=== PATIENT | male | born 1980 | race Caucasian/White ===

== ENCOUNTER 2018-06-13 14:33 | Emergency (ER) | payer BC ==
[2018-06-13 16:03] LABS: Absolute Neutrophil 7.4 K/uL (1.8-8.0); Basophils % 0.1 % (0-1.3); Hematocrit 48.9 % (39.6-49.0); Lymphocytes % 10.4 % (15.3-44.8); MPV 8.6 fL (7.6-11.3); Monocytes % 10.3 % (3.3-12.3); RBC Red Blood Cell Count 5.76 M/uL (4.33-5.43)
[2018-06-13] MEDS ORDERED: NA CHLORIDE 0.9% 1,000 ML ONE (16:05)
[2018-06-13] MEDS ORDERED: ONDANSETRON 4 MG/2 ML VIAL ONE (16:05)
--- NOTE | 2018-06-13 16:06 | RAD REPORT ---
EXAM DESCRIPTION: RAD - Chest Pa And Lat (2 Views) - 06/13/2018 3:57 pm CLINICAL HISTORY: Cough;Congestion Chest pain. COMPARISON: Chest Pa And Lat (2 Views) dated 03/21/2017; ABDOMEN ACUTE SERIES dated 08/04/2012 FINDINGS: The lungs are clear. The heart is normal in size. No displaced fractures. IMPRESSION: No acute or concerning finding suspected.
[2018-06-13 16:21] LABS: BUN Blood Urea Nitrogen 5 mg/dL (7-18); Bicarbonate 31 mmol/L (21-32); Glucose Level 108 mg/dL (74-106); Potassium 3.4 mmol/L (3.5-5.1); Sodium Level 137 mmol/L (136-145)
[2018-06-13] MEDS ORDERED: PROMETHAZINE 25 MG/ML VIAL ONE (16:45)
--- NOTE | 2018-06-13 17:24 | EDPHYS ---
Physician Documentation [facility] Name: Varinder Michael Age: 37 yrs Sex: Male : 1980 Arrival Date: 06/13/2018 Time: 14:36 Bed 23 Private MD: Elías Harrington H ED Physician Alex Bush HPI: 06/13 16:27 This 37 yrs old Male presents to ER via Ambulatory with complaints of kb Shortness Of Breath, Vomiting. 16:27 The patient or guardian reports cough, that is intermittent, described as moderate, kb with no sputum, difficulty breathing, flu symptoms, arthralgias, low-grade fever, myalgias, no appetite. Onset: The symptoms/episode began/occurred 4 day(s) ago. Severity of symptoms: At their worst the symptoms were moderate, in the emergency department the symptoms are unchanged. Modifying factors: The symptoms are alleviated by nothing, the symptoms are aggravated by nothing. Associated signs and symptoms: Pertinent positives: chest pain, with cough, with movement, with breathing, fever, nausea, rhinorrhea, sore throat, vomiting. The patient has not experienced similar symptoms in the past. The patient has been recently seen at an urgent care, yesterday, for similar complaints, labs were performed. Pt states he started with chills, cough, congestion 4 days ago. States the symptoms progressed so he went to yesterday and was positive for Flu A. States he hasn't been able to hold anything down and the medications aren't helping. . Pt has ProAir, zofran ODT, tamiflu and tessalon pearles that were prescribed yesterday. Historical: - Allergies: 14:52 No Known Allergies; hj - Home Meds: 14:52 Nexium 40 mg Oral cpDR 1 cap once daily [Active]; Proventil Inhl [Active]; hj - PMHx: 14:52 Asthma; GERD; hj - PSHx: 14:52 Hand- Right; hj - Immunization history:: Adult Immunizations up to date. - Social history:: Smoking status: Patient/guardian denies using tobacco, Patient/guardian denies using alcohol. - Ebola Screening: : Patient negative for fever greater than or equal to 101.5 degrees Fahrenheit, and additional compatible Ebola Virus Disease symptoms Patient denies exposure to infectious person Patient denies travel to an Ebola-affected area in the 21 days before illness onset. ROS: 16:26 Eyes: Negative for injury, pain, redness, and discharge, ENT: Negative for injury, kb pain, and discharge, Neck: Negative for injury, pain, and swelling, Back: Negative for injury and pain, MS/Extremity: Negative for injury and deformity, Skin: Negative for injury, rash, and discoloration, Neuro: Negative for headache, weakness, numbness, tingling, and seizure. 16:26 Constitutional: Positive for body aches, chills, fatigue, fever, malaise, poor PO intake, Negative for weight loss. 16:26 Respiratory: Positive for cough, Negative for dyspnea on exertion, hemoptysis, orthopnea, pleurisy, shortness of breath, sputum production, wheezing. 16:26 Abdomen/GI: Positive for nausea and vomiting, Negative for abdominal pain, diarrhea, constipation, abdominal cramps, abdominal distension, anorexia. Exam: 16:26 Constitutional: This is a well developed, well nourished patient who is awake, alert, kb and in no acute distress. Head/Face: Normocephalic, atraumatic. ENT: Nares patent. No nasal discharge, no septal abnormalities noted. Tympanic membranes are normal and external auditory canals are clear. Oropharynx with no redness, swelling, or masses, exudates, or evidence of obstruction, uvula midline. Mucous membranes moist. Neck: Trachea midline, no thyromegaly or masses palpated, and no cervical lymphadenopathy. Supple, full range of motion without nuchal rigidity, or vertebral point tenderness. No Meningismus. Chest/axilla: Normal chest wall appearance and motion. Nontender with no deformity. No lesions are appreciated. Cardiovascular: Regular rate and rhythm with a normal S1 and S2. No gallops, murmurs, or rubs. Normal PMI, no JVD. No pulse deficits. Respiratory: Lungs have equal breath sounds bilaterally, clear to auscultation and percussion. No rales, rhonchi or wheezes noted. No increased work of breathing, no retractions or nasal flaring. Abdomen/GI: Soft, non-tender, with normal bowel sounds. No distension or tympany. No guarding or rebound. No evidence of tenderness throughout. Skin: Warm, dry with normal turgor. Normal color with no rashes, no lesions, and no evidence of cellulitis. MS/ Extremity: Pulses equal, no cyanosis. Neurovascular intact. Full, normal range of motion. Neuro: Awake and alert, GCS 15, oriented to person, place, time, and situation. Cranial nerves II-XII grossly intact. Motor strength 5/5 in all extremities. Sensory grossly intact. Cerebellar exam normal. Normal gait. Vital Signs: 14:53 BP 116 / 83; Pulse 102; Resp 20; Temp 98.8(TE); Pulse Ox 99% on R/A; Weight 77.11 kg; hj Height 5 ft. 4 in. (162.56 cm); Pain 8/10; 16:03 BP 118 / 86; Pulse 86; Resp 18; Pulse Ox 100% on R/A; Pain 0/10; mg2 17:54 BP 120 / 63; Pulse 80; Resp 18; Temp 99.4(O); Pulse Ox 100% on R/A; Pain 0/10; mg2 14:53 Body Mass Index 29.18 (77.11 kg, 162.56 cm) MDM: 15:07 Patient medically screened. kb 16:24 Data reviewed: vital signs, nurses notes. Data interpreted: Pulse oximetry: on room air kb is 100 %. Interpretation: normal. Counseling: I had a detailed discussion with the patient and/or guardian regarding: the historical points, exam findings, and any diagnostic results supporting the discharge/admit diagnosis, lab results, radiology results, the need for outpatient follow up, a family practitioner, to return to the emergency department if symptoms worsen or persist or if there are any questions or concerns that arise at home. 06/13 15:39 Order name: CBC with Diff; Complete Time: 16:09 kb 06/13 15:39 Order name: Basic Metabolic Panel; Complete Time: 16:23 kb 06/13 15:39 Order name: Chest Pa And Lat (2 Views) XRAY; Complete Time: 16:09 kb 06/13 16:09 Order name: PO challenge; Complete Time: 17:04 kb Administered Medications: 15:53 Drug: NS 0.9% 1000 ml Route: IV; Rate: 1000 ml; Site: right antecubital; mg2 17:07 Follow up: Response: No adverse reaction; IV Status: Completed infusion mg2 15:53 Drug: Zofran 4 mg Route: IVP; Site: left antecubital; mg2 17:06 Follow up: Response: No adverse reaction; Marked relief of symptoms mg2 16:38 Drug: Phenergan 12.5 mg Route: IVP; Site: right antecubital; mg2 17:07 Follow up: Response: No adverse reaction; Marked relief of symptoms mg2 Disposition: 06/14 06:47 Co-signature as Attending Physician, Alex Bush MD I agree with the assessment and yelitza plan of care. Disposition: 06/13/18 17:24 Discharged to Home. Impression: Influenza due to identified novel influenza A virus. - Condition is Stable. - Discharge Instructions: Influenza, Adult, Itob-cw-Nept. - Prescriptions for Phenergan 25 mg Rectal Suppository - insert 1 suppository by RECTAL route every 6 hours As needed; 12 suppository. - Medication Reconciliation Form, Thank You Letter, Antibiotic Education, Prescription Opioid Use form. - Follow up: Emergency Department; When: As needed; Reason: Worsening of condition. Follow up: Private Physician; When: 2 - 3 days; Reason: Recheck today's complaints, Continuance of care, Re-evaluation by your physician. Signatures: Dispatcher [employer] EDAlisia Perez, MASTER BAKER-C MASTER BAKER-Luis Albertob Alex Bush MD MD cha Joaquin, Henry, Lucas Espinal RN, RN RN mg2 Corrections: (The following items were deleted from the chart) 06/13 18:01 17:24 06/13/2018 17:24 Discharged to Home. Impression: Influenza due to identified mg2 novel influenza A virus. Condition is Stable. Forms are Medication Reconciliation Form, Thank You Letter, Antibiotic Education, Prescription Opioid Use. Follow up: Emergency Department; When: As needed; Reason: Worsening of condition. Follow up: Private Physician; When: 2 - 3 days; Reason: Recheck today's complaints, Continuance of care, Re-evaluation by your physician. kb
--- NOTE | 2018-06-13 17:24 | ER ---
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 Transition of care: patient was not received from another setting of care. Onset of symptoms was June 13, 2018. Risk Assessment: Do you want to hurt yourself or someone else? Patient reports no desire to harm self or others. Initial Sepsis Screen: Does the patient meet any 2 criteria? Yes Does the patient have a suspected source of infection? Yes:. Care prior to arrival: None. 14:50 Method Of Arrival: Ambulatory 14:50 Acuity: TREY 3 hj Triage Assessment: 14:52 General: Appears in no apparent distress. uncomfortable, Behavior is calm, cooperative, hj appropriate for age. Pain: Complains of pain in chest. Respiratory: Reports shortness of breath Onset: The symptoms/episode began/occurred Historical: - Allergies: 14:52 No Known Allergies; hj - Home Meds: 14:52 Nexium 40 mg Oral cpDR 1 cap once daily [Active]; Proventil Inhl [Active]; hj - PMHx: 14:52 Asthma; GERD; hj - PSHx: 14:52 Hand- Right; hj - Immunization history:: Adult Immunizations up to date. - Social history:: Smoking status: Patient/guardian denies using tobacco, Patient/guardian denies using alcohol. - Ebola Screening: : Patient negative for fever greater than or equal to 101.5 degrees Fahrenheit, and additional compatible Ebola Virus Disease symptoms Patient denies exposure to infectious person Patient denies travel to an Ebola-affected area in the 21 days before illness onset. Screenin:52 Abuse screen: Denies threats or abuse. Denies injuries from another. Nutritional hj screening: No deficits noted. Tuberculosis screening: No symptoms or risk factors identified. Fall Risk None identified. Assessment: 14:52 Cardiovascular: Rhythm is. Respiratory: Airway is patent Respiratory effort is even, hj unlabored, Respiratory pattern is regular, symmetrical, 16:02 General: Appears in no apparent distress. comfortable, Behavior is calm, cooperative. mg2 Pain: Denies pain. Neuro: Level of Consciousness is awake, alert, obeys commands, Oriented to person, place, time, situation. GI: Reports nausea, vomiting. : No signs and/or symptoms were reported regarding the genitourinary system. EENT: No signs and/or symptoms were reported regarding the EENT system. Derm: Skin is intact, is healthy with good turgor, Skin is pink, warm \T\ dry. normal. Musculoskeletal: No signs and/or symptoms reported regarding the musculoskeletal system. Vital Signs: 14:53 BP 116 / 83; Pulse 102; Resp 20; Temp 98.8(TE); Pulse Ox 99% on R/A; Weight 77.11 kg; hj Height 5 ft. 4 in. (162.56 cm); Pain 8/10; 16:03 BP 118 / 86; Pulse 86; Resp 18; Pulse Ox 100% on R/A; Pain 0/10; mg2 17:54 BP 120 / 63; Pulse 80; Resp 18; Temp 99.4(O); Pulse Ox 100% on R/A; Pain 0/10; mg2 14:53 Body Mass Index 29.18 (77.11 kg, 162.56 cm) hj ED Course: 13:50 Initial lab(s) drawn, by me, sent to lab. Inserted saline lock: 20 gauge in right jp3 antecubital area, using aseptic technique. Blood collected. 14:36 Patient arrived in ED. mr 14:37 Elías Harrington DO is Private Physician. mr 14:51 Triage completed. hj 14:52 Arm band placed on left wrist. hj 14:53 Patient has correct armband on for positive identification. Placed in gown. Bed in low hj position. Call light in reach. Side rails up X 1. 15:07 Alisia Khoury FNP-C is [facility]. kb 15:07 Alex Bush MD is Attending Physician. kb 15:11 Lucas Esteves RN is Primary Nurse. mg2 15:58 Chest Pa And Lat (2 Views) XRAY In Process Unspecified. EDMS 16:03 Basic Metabolic Panel Sent. jp3 16:03 CBC with Diff Sent. jp3 17:07 No provider procedures requiring assistance completed. mg2 17:58 IV discontinued, intact, bleeding controlled, No redness/swelling at site. Pressure mg2 dressing applied. Administered Medications: 15:53 Drug: NS 0.9% 1000 ml Route: IV; Rate: 1000 ml; Site: right antecubital; mg2 17:07 Follow up: Response: No adverse reaction; IV Status: Completed infusion mg2 15:53 Drug: Zofran 4 mg Route: IVP; Site: left antecubital; mg2 17:06 Follow up: Response: No adverse reaction; Marked relief of symptoms mg2 16:38 Drug: Phenergan 12.5 mg Route: IVP; Site: right antecubital; mg2 17:07 Follow up: Response: No adverse reaction; Marked relief of symptoms mg2 Outcome: 17:24 Discharge ordered by MD. kb 17:59 Discharged to home via wheelchair, with family. mg2 17:59 Condition: stable 17:59 Discharge instructions given to patient, family, Instructed on discharge instructions, follow up and referral plans. medication usage, Demonstrated understanding of instructions, follow-up care, medications, Prescriptions given X 1. 18:01 Patient left the ED. 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
[2018-06-13 18:54] VITALS: O2SAT 100
[2018-06-13 18:56] VITALS: BP 120/63; TEMP 99.4
== END 2018-06-13 18:01 | disposition home or self-care (01) ==
LOC: ER 14:33
DX: J09.X2 Influenza due to identified novel influenza A virus with other respiratory manifestations (principal); K21.9 Gastro-esophageal reflux disease without esophagitis; J45.909 Unspecified asthma, uncomplicated
CPT/HCPCS: 36415; 71046; 80048; 85025; 99284; J2405; J2550; J7030

== ENCOUNTER 2018-08-02 10:30 | Emergency (ER) | payer BC ==
[2018-08-02 11:08] LABS: Absolute Lymphocytes (CBC) 0.7 K/uL (0.7-4.9); Absolute Monocytes 0.6 K/uL (0.1-1.3); Absolute Neutrophil 10.9 K/uL (1.8-8.0); Basophils % 0.2 % (0-1.3); Eosinophils % 0.4 % (0-4.4); Hematocrit 51.9 % (39.6-49.0); MPV 8.2 fL (7.6-11.3); Monocytes % 5.1 % (3.3-12.3); RBC Red Blood Cell Count 6.09 M/uL (4.33-5.43)
[2018-08-02] MEDS ORDERED: FAMOTIDINE 20 MG/2 ML VIAL IV ONE (11:18)
[2018-08-02] MEDS ORDERED: FENTANYL CITR 100 MCG/2 ML ONE (11:18)
[2018-08-02] MEDS ORDERED: NA CHLORIDE 0.9% 1,000 ML ONE (11:18)
--- NOTE | 2018-08-02 11:25 | RAD REPORT ---
EXAM DESCRIPTION: CT - Stone Protocol - 08/02/2018 11:12 am CLINICAL HISTORY: Abdominal pain. Epigastric pain COMPARISON: 2014 TECHNIQUE: Computed axial tomography of the abdomen pelvis was obtained without oral or IV contrast. Lack of IV and oral contrast limits evaluation of solid organs, bowel, and vessels. Coronal reformat jose cruz images were obtained and reviewed. All CT scans are performed using dose optimization technique as appropriate and may include automated exposure control or mA/KV adjustment according to patient size. FINDINGS: A renal calculus is not seen. An ureteral calculus is not noted. A bladder calculus is not present. The liver, spleen, pancreas and adrenals appear grossly normal There is no evidence of diverticulitis. The appendix appears normal Small umbilical hernia Gallbladder borderline distended IMPRESSION: Negative for a genitourinary calculus Borderline gallbladder distention
[2018-08-02 11:33] LABS: Albumin 4.5 g/dL (3.4-5.0); Bilirubin Direct 0.1 mg/dL (0-0.2); Bilirubin Total 0.6 mg/dL (0.2-1.0); Potassium 3.9 mmol/L (3.5-5.1); Protein, Total 8.3 g/dL (6.4-8.2)
[2018-08-02 11:50] LABS: Urine Blood 1+ (NEG); Urine Glucose NEGATIVE (NEG); Urine Protein 1+ (NEG); Urine Specific Gravity 1.015 (1.005-1.030)
[2018-08-02 12:05] LABS: Urine Amorphous Sediment 2+ /HPF (NONE SEEN); Urine Bacteria <20 /HPF (NONE SEEN); Urine RBC <5 /HPF (NONE SEEN)
[2018-08-02 12:06] LABS: Urine Culture Reflex Order NOT NEEDED
[2018-08-02 12:26] LABS: Blood Morphology Comment NOT SEEN (NOT SEEN); Platelet Estimate ADEQ; Urine White Blood Cell Casts OK
[2018-08-02] MEDS ORDERED: SUCRALFATE 1GM/10ML UCUP PO ONE (13:15)
[2018-08-02] MEDS ORDERED: HYDROCODONE/APAP 5/325 MG TAB ONE (13:16)
--- NOTE | 2018-08-02 14:12 | EDPHYS ---
Physician Documentation [facility] Name: Varinder Michael Age: 37 yrs Sex: Male : 1980 Arrival Date: 08/02/2018 Time: 10:32 Bed 26 Private MD: ED Physician Tj Cortez HPI: 08/02 14:08 This 37 yrs old Male presents to ER via Ambulatory with complaints of gs Abdominal Pain - Hiatal Hernia. 14:08 The patient presents with abdominal pain in the epigastric area. gs 14:09 Onset: The symptoms/episode began/occurred acutely, yesterday. The symptoms radiate to gs Associated signs and symptoms: Pertinent positives: vomiting. The symptoms are described as sharp. Modifying factors: the symptoms are aggravated by movement. Severity of pain: At its worst the pain was moderate in the emergency department the pain is unchanged. The patient has experienced similar episodes in the past, a few times. Historical: - Allergies: 10:45 No Known Allergies; ch - Home Meds: 10:51 Nexium 40 mg Oral cpDR 1 cap once daily [Active]; ls4 - PMHx: 10:51 Asthma; GERD; hiatal hernia; "colon infection"; ls4 - PSHx: 10:51 colonoscopy; R hand; ls4 - Immunization history:: Adult Immunizations up to date, Flu vaccine is not up to date. - Social history:: Smoking status: Patient/guardian denies using tobacco, Patient/guardian denies using alcohol, street drugs. - Ebola Screening: : Patient negative for fever greater than or equal to 101.5 degrees Fahrenheit, and additional compatible Ebola Virus Disease symptoms Patient denies exposure to infectious person Patient denies travel to an Ebola-affected area in the 21 days before illness onset No symptoms or risks identified at this time. ROS: 14:09 All other systems are negative. gs Exam: 14:09 Head/Face: Normocephalic, atraumatic. Eyes: Pupils equal round and reactive to light, gs extra-ocular motions intact. Lids and lashes normal. Conjunctiva and sclera are non-icteric and not injected. Cornea within normal limits. Periorbital areas with no swelling, redness, or edema. ENT: Nares patent. No nasal discharge, no septal abnormalities noted. Tympanic membranes are normal and external auditory canals are clear. Oropharynx with no redness, swelling, or masses, exudates, or evidence of obstruction, uvula midline. Mucous membranes moist. Neck: Trachea midline, no thyromegaly or masses palpated, and no cervical lymphadenopathy. Supple, full range of motion without nuchal rigidity, or vertebral point tenderness. No Meningismus. Chest/axilla: Normal chest wall appearance and motion. Nontender with no deformity. No lesions are appreciated. Cardiovascular: Regular rate and rhythm with a normal S1 and S2. No gallops, murmurs, or rubs. Normal PMI, no JVD. No pulse deficits. Respiratory: Lungs have equal breath sounds bilaterally, clear to auscultation and percussion. No rales, rhonchi or wheezes noted. No increased work of breathing, no retractions or nasal flaring. Back: No spinal tenderness. No costovertebral tenderness. Full range of motion. Skin: Warm, dry with normal turgor. Normal color with no rashes, no lesions, and no evidence of cellulitis. MS/ Extremity: Pulses equal, no cyanosis. Neurovascular intact. Full, normal range of motion. Neuro: Awake and alert, GCS 15, oriented to person, place, time, and situation. Cranial nerves II-XII grossly intact. Motor strength 5/5 in all extremities. Sensory grossly intact. Cerebellar exam normal. Normal gait. 14:09 Constitutional: The patient appears alert, awake. 14:09 Constitutional: The patient appears in no acute distress. 14:09 Abdomen/GI: Palpation: mild abdominal tenderness, moderate abdominal tenderness, in the epigastric area, rebound tenderness, is not appreciated. 14:09 ECG was reviewed by the Attending Physician. Vital Signs: 10:45 BP 138 / 91; Pulse 125; Resp 17; Temp 98.8; Pulse Ox 99% on R/A; Weight 77.11 kg; ch Height 5 ft. 3 in. (160.02 cm); Pain 9/10; 12:00 BP 136 / 80; Pulse 80; Resp 16; Temp 98.4(O); Pulse Ox 99% on R/A; Pain 5/10; ls4 13:31 Pain 4/10; ls4 14:11 BP 125 / 72; Pulse 78; Resp 18; Temp 98.1(O); Pulse Ox 99% on R/A; Pain 4/10; ls4 10:45 Body Mass Index 30.11 (77.11 kg, 160.02 cm) ch MDM: 10:52 Patient medically screened. 14:09 Differential diagnosis: coronary artery disease, gastroesophageal reflux disease, gs non-specific abd pain, pancreatitis, Peptic Ulcer Disease. Data reviewed: vital signs, nurses notes. Counseling: I had a detailed discussion with the patient and/or guardian regarding: the historical points, exam findings, and any diagnostic results supporting the discharge/admit diagnosis, the presence of at least one elevated blood pressure reading (>120/80) during this emergency department visit, lab results, radiology results, the need for outpatient follow up. Response to treatment: the patient's symptoms have resolved after treatment, and as a result, I will discharge patient. 08/02 10:53 Order name: Basic Metabolic Panel; Complete Time: 12:14 08/02 10:53 Order name: CBC with Diff; Complete Time: 12:33 08/02 10:53 Order name: Hepatic Function; Complete Time: 12:14 08/02 10:53 Order name: Lipase; Complete Time: 12:14 08/02 10:53 Order name: Urine Microscopic Only; Complete Time: 12:14 08/02 11:13 Order name: CBC Smear Scan; Complete Time: 12:33 EDIN 08/02 10:53 Order name: CT Stone Protocol; Complete Time: 11:27 08/02 11:14 Order name: Troponin I; Complete Time: 12:14 08/02 11:17 Order name: Urine Dipstick--Ancillary (enter results); Complete Time: 12:14 08/02 10:53 Order name: IV Saline Lock; Complete Time: 11:05 08/02 10:53 Order name: Labs collected and sent; Complete Time: 11:05 08/02 10:53 Order name: Urine Dipstick-Ancillary (obtain specimen); Complete Time: 11:16 08/02 10:53 Order name: EKG; Complete Time: 10:54 08/02 10:53 Order name: EKG - Nurse/Tech; Complete Time: 11:05 EC:09 Rate is 126 beats/min. Rhythm is regular. MI interval is normal. QRS interval is gs normal. No Q waves. T waves are Inverted in leads I, aVL. Clinical impression: NSR w/ Non-specific ST/T Changes. Administered Medications: 11:15 Drug: fentaNYL (PF) 50 mcg Route: IVP; Site: right antecubital; ls4 13:31 Follow up: Pain 4/10 Adult; Response: No adverse reaction; Marked relief of symptoms ls4 11:15 Drug: Pepcid 20 mg Route: IVP; Site: right antecubital; ls4 11:30 Follow up: Response: No adverse reaction; Marked relief of symptoms ls4 11:15 Drug: NS 0.9% 1000 ml Route: IV; Rate: 1 bolus; Site: right antecubital; ls4 13:15 Follow up: IV Status: Completed infusion; IV Intake: 1000ml ls4 12:58 CANCELLED (Duplicate Order): CarafATE 1 grams PO once ls4 13:08 Drug: Kersey 5 mg-325 mg 1 tabs Route: PO; ca1 13:31 Follow up: Response: No adverse reaction; Marked relief of symptoms ls4 13:10 Drug: Carafate 10 ml Route: PO; ls4 13:31 Follow up: Response: No adverse reaction ls4 Disposition: 08/02/18 14:12 Discharged to Home. Impression: Epigastric pain. - Condition is Stable. - Discharge Instructions: Abdominal Pain, Adult, Managing Your Hypertension. - Prescriptions for Carafate 100 mg/mL Oral suspension - take 10 milliliter by ORAL route 2 times per day As needed; 200 milliliter. - Medication Reconciliation Form, Thank You Letter, Antibiotic Education, Prescription Opioid Use form. - Follow up: Donaldo Steen MD; When: 2 - 3 days; Reason: Re-evaluation by your physician. Signatures: Dispatcher [employer] EDFabiola Flores RN RN Tj Cortez MD MD gs Stewart, Lisa, RN RN ls4 Alejandra Reynaga RN RN ca1 Corrections: (The following items were deleted from the chart) 10:52 10:45 Home Meds: Nexium 40 mg Oral cpDR 1 cap once daily; ls4 10: 10:45 PMHx: Asthma; ls4 :52 10:45 PMHx: GERD; ls4 : 10:45 PMHx: hiatal hernia; ls4 :52 10:45 PMHx: "colon infection"; ls4 10:52 10:45 PSHx: colonoscopy; ls4 10:52 10:45 PSHx: R hand; ls4 12:58 12:58 CarafATE 1 grams PO once ordered. ls4 ls4 14:30 14:12 08/02/2018 14:12 Discharged to Home. Impression: Epigastric pain. Condition is ls4 Stable. Forms are Medication Reconciliation Form, Thank You Letter, Antibiotic Education, Prescription Opioid Use. Follow up: Donaldo Steen; When: 2 - 3 days; Reason: Re-evaluation by your physician. gs
--- NOTE | 2018-08-02 14:12 | ER ---
Nurse's Notes [facility] Name: Varinder Michael Age: 37 yrs Sex: Male : 1980 Arrival Date: 08/02/2018 Time: 10:32 Bed 26 Private MD: Diagnosis: Epigastric pain Presentation: 08/02 10:41 Presenting complaint: Patient states: epigastric pain, lower chest pain, radiating into ch my back, straight thru. hx of hiatal hernia but never had pain like this. started at 1200 yesterday, pt made himself vomit, all of yesterdays food came right back up. Transition of care: patient was not received from another setting of care. Onset of symptoms was August 02, 2018 at 00:00. Risk Assessment: Do you want to hurt yourself or someone else? Patient reports no desire to harm self or others. Initial Sepsis Screen: Does the patient meet any 2 criteria? No. Patient's initial sepsis screen is negative. Does the patient have a suspected source of infection? No. Patient's initial sepsis screen is negative. Care prior to arrival: None. 10:41 Method Of Arrival: Ambulatory 10:41 Acuity: TREY 3 Triage Assessment: 10:45 General: Appears in no apparent distress. uncomfortable, Behavior is cooperative. Pain: Complains of pain in xyphoid area and epigastric area Pain currently is 9 out of 10 on a pain scale. GI: Abdomen is flat, non-distended. Historical: - Allergies: 10:45 No Known Allergies; - Home Meds: 10:51 Nexium 40 mg Oral cpDR 1 cap once daily [Active]; ls4 - PMHx: 10:51 Asthma; GERD; hiatal hernia; "colon infection"; ls4 - PSHx: 10:51 colonoscopy; R hand; ls4 - Immunization history:: Adult Immunizations up to date, Flu vaccine is not up to date. - Social history:: Smoking status: Patient/guardian denies using tobacco, Patient/guardian denies using alcohol, street drugs. - Ebola Screening: : Patient negative for fever greater than or equal to 101.5 degrees Fahrenheit, and additional compatible Ebola Virus Disease symptoms Patient denies exposure to infectious person Patient denies travel to an Ebola-affected area in the 21 days before illness onset No symptoms or risks identified at this time. Screenin:40 Abuse screen: Denies threats or abuse. Denies injuries from another. Nutritional ls4 screening: No deficits noted. Tuberculosis screening: No symptoms or risk factors identified. Fall Risk None identified. Assessment: 10:49 GI: Bowel sounds present X 4 quads. Abdomen is tender to palpation in epigastric area, ls4 left upper quadrant and abdomen diffusely Reports Pain is 10 out of 10 on a pain scale. Vital Signs: 10:45 BP 138 / 91; Pulse 125; Resp 17; Temp 98.8; Pulse Ox 99% on R/A; Weight 77.11 kg; ch Height 5 ft. 3 in. (160.02 cm); Pain 9/10; 12:00 BP 136 / 80; Pulse 80; Resp 16; Temp 98.4(O); Pulse Ox 99% on R/A; Pain 5/10; ls4 13:31 Pain 4/10; ls4 14:11 BP 125 / 72; Pulse 78; Resp 18; Temp 98.1(O); Pulse Ox 99% on R/A; Pain 4/10; ls4 10:45 Body Mass Index 30.11 (77.11 kg, 160.02 cm) ED Course: 10:32 Patient arrived in ED. as 10:35 Tj Cortez MD is Attending Physician. gs 10:39 Lavinia Das, RN is Primary Nurse. ls4 10:40 Patient has correct armband on for positive identification. Placed in gown. Bed in low ls4 position. Call light in reach. Side rails up X 1. Verbal reassurance given. 10:40 No provider procedures requiring assistance completed. ls4 10:44 Triage completed. ch 10:45 Arm band placed on left wrist. Patient placed in an exam room, on a stretcher, on pulse oximetry. 11:01 EKG done, by telecasting technician. reviewed by Tj Cortez MD. at1 11:12 CT Stone Protocol In Process Unspecified. EDMS 11:16 Initial lab(s) drawn, by oh, sent to lab. Urine collected: clean catch specimen, clear. ls4 Inserted saline lock: 20 gauge in right antecubital area, using aseptic technique. Blood collected. Patient maintains SpO2 saturation greater than 95% on room air. 11:48 CBC Smear Scan Sent. ls4 14:11 Donaldo Steen MD is Referral Physician. gs 14:27 IV discontinued, intact, bleeding controlled, No redness/swelling at site. ls4 Administered Medications: 11:15 Drug: fentaNYL (PF) 50 mcg Route: IVP; Site: right antecubital; ls4 13:31 Follow up: Pain 4/10 Adult; Response: No adverse reaction; Marked relief of symptoms ls4 11:15 Drug: Pepcid 20 mg Route: IVP; Site: right antecubital; ls4 11:30 Follow up: Response: No adverse reaction; Marked relief of symptoms ls4 11:15 Drug: NS 0.9% 1000 ml Route: IV; Rate: 1 bolus; Site: right antecubital; ls4 13:15 Follow up: IV Status: Completed infusion; IV Intake: 1000ml ls4 12:58 CANCELLED (Duplicate Order): CarafATE 1 grams PO once ls4 13:08 Drug: [place] 5 mg-325 mg 1 tabs Route: PO; ca1 13:31 Follow up: Response: No adverse reaction; Marked relief of symptoms ls4 13:10 Drug: Carafate 10 ml Route: PO; ls4 13:31 Follow up: Response: No adverse reaction ls4 Intake: 13:15 IV: 1000ml; Total: 1000ml. ls4 Outcome: 14:12 Discharge ordered by . gs 14:27 Discharged to home ambulatory. ls4 14:27 Condition: stable 14:27 Discharge instructions given to patient, Instructed on discharge instructions, follow up and referral plans. medication usage, Demonstrated understanding of instructions, follow-up care, medications. 14:30 Patient left the ED. ls4 Signatures: Dispatcher [employer] EDMS Fabiola De León RN RN Garima Mcnamara Amanda, whizzer hand EKG Tat1 Tj Cortez MD MD Lavinia Das RN RN ls4 Alejandra Reynaga RN RN ca1 Corrections: (The following items were deleted from the chart) 10:52 10:45 Home Meds: Nexium 40 mg Oral cpDR 1 cap once daily; ls4 10:52 10:45 PMHx: Asthma; ls4 10:52 10:45 PMHx: GERD; ls4 10:52 10:45 PMHx: hiatal hernia; ls4 10:52 10:45 PMHx: "colon infection"; ls4 10:45 PSHx: colonoscopy; ls4 10:45 PSHx: R hand; ls4 13:31 11:30 Response: No adverse reaction; Marked relief of symptoms ls4 ls4
[2018-08-02 14:36] VITALS: O2SAT 99
[2018-08-02 14:39] VITALS: BP 125/72; TEMP 98.1
--- NOTE | 2018-08-03 06:07 | EKG ---
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
== END 2018-08-02 14:30 | disposition home or self-care (01) ==
LOC: ER 10:30
DX: R10.13 Epigastric pain (principal); K21.9 Gastro-esophageal reflux disease without esophagitis
CPT/HCPCS: 36415; 74176; 76377; 80048; 80076; 81003; 81015; 83690; 84484; 85025; 93005; 96361; 96374; 96375; 99284; J3010; J7030